=== PATIENT | male | born 1995 | race Caucasian/White ===

== ENCOUNTER → 2019-02-28 | Outpatient (CLI) | payer BC ==
--- NOTE | 2019-02-28 07:59 | Diagnostic Imaging Report ---
PROCEDURE: US Hepatic (Liver). TECHNIQUE: Multiple real-time grayscale images were obtained over the right upper quadrant in various projections. INDICATION: Elevated liver enzymes COMPARISON: None available FINDINGS: The liver demonstrates diffusely increased echogenicity with a coarsened echotexture with poor acoustic transmission. No focal hepatic mass. Normal directional flow within the main portal vein. The gallbladder is unremarkable without evidence of gallstone, gallbladder wall thickening, or pericholecystic fluid. The common bile duct is unable to be visualized. The pancreas is unable to be visualized secondary to overlying bowel gas. The abdominal aorta and inferior vena cava were not optimally visualized secondary to overlying bowel gas. The right kidney is within normal limits in size without evidence of hydronephrosis or solid renal mass. No significant free fluid. Negative sonographic Manuel sign. IMPRESSION: Fatty infiltration of the liver. Otherwise, unremarkable examination within the limits of the exam. Dictated by: Dictated on workstation # [id number]
== END ==
LOC: RAD 06:47
PROVIDERS: ATTEND Family Medicine
DX: K76.0 Fatty (change of) liver, not elsewhere classified (principal); R74.8 Abnormal levels of other serum enzymes
CPT/HCPCS: 76705